=== PATIENT | male | born 1990 | race Caucasian/White ===

== ENCOUNTER 2018-11-09 13:30 | Emergency (ER) | payer OTHER, SELFPAY ==
[2018-11-09 13:43] VITALS: BP 140/87; PULSE 71; RESP 15; O2SAT 96; BMI 20.7
--- NOTE | 2018-11-09 16:16 | PC.NURSE ---
Leopoldo states he does not want to wait any longer. No acute distress. Encouraged to return if worse / concerns.
== END 2018-11-09 16:00 | disposition left against medical advice (07) ==
PROVIDERS: Emergency Provider Emergency Medicine
DX: Z53.21 Procedure and treatment not carried out due to patient leaving prior to being seen by health care provider (principal)
CPT/HCPCS: 93005

== ENCOUNTER 2018-11-09 19:08 | Emergency (ER) | payer OTHER, SELFPAY ==
[2018-11-09 19:15] VITALS: BP 148/94; PULSE 76; RESP 14; TEMP 36.7; O2SAT 98
[2018-11-09] MEDS: IBUPROFEN 400 MG TABLET 800 MG PO (19:21)
--- NOTE | 2018-11-09 21:19 | ED.EXTPRO ---
HPI - Extremity Problem <ALEX Manzo - Last Filed: 11/09/18 21:52> General Chief complaint: Extremity Problem,Nontraumatic Stated complaint: PAIN LEFT SHOULDER Time Seen by Provider: 11/09/18 21:05 Source: patient Mode of arrival: ambulatory Limitations: no limitations History of Present Illness HPI Narrative: The patient is a 28-year-old male current everyday smoker who presents with a chief complaint of left arm pain. he states he has a knot in his left upper back that has progressed to pain down his arm with some pins and needle sensation. He denies any fall or trauma pain denies any fevers nausea vomiting diarrhea, chest pain shortness of breath. He states he was exercising yesterday. He has not taken anything at home by himself. He states he took ibuprofen earlier today in the waiting room. He states that this has happened before and that applying ice this helped. Related Data Previous Rx's Medication Instructions Recorded cyclobenzaprine 10 mg PO TID PRN #20 tab 11/09/18 ketorolac 10 mg PO Q6H PRN 2 Days #8 tab 11/09/18 Allergies Allergy/AdvReac Type Severity Reaction Status Date / Time No Known Drug Allergies Allergy Verified 11/09/18 19:18 Review of Systems <ALEX Manzo - Last Filed: 11/09/18 21:52> Review of Systems GENERAL: Denies chills, fatigue, malaise, fever, sweats. HEENT: Denies sinus pain, ear pain, sore throat, difficulty swallowing, dizziness. RESPIRATORY: Denies dyspnea, cough, wheezing, hemoptysis, sputum. CARDIOVASCULAR: Denies chest pain, palpitations, orthopnea, edema, GASTROINTESTINAL: Denies nausea, vomiting, abdominal pain, diarrhea, constipation, melena. : Denies dysuria, frequency, incontinence, hematuria, urinary retention. MUSCULOSKELETAL: See HPI SKIN: Denies rash, skin lesions, or other NEUROLOGIC: Denies weakness, headache, numbness, change in speech, confusion, seizures, incoordination. PSYCHIATRIC: No concerning psychosocial issues. 12 point review of systems is negative except for those stated above PFSH <ALEX Manzo - Last Filed: 11/09/18 21:52> Social History Smoking Status: Current every day smoker Social History Smoking Status: Current every day smoker Exam <HUA Manzo - Last Filed: 11/09/18 21:52> Narrative Exam Narrative: GENERAL: This is a well-nourished, well-developed patient, in mild distress. HEAD: Atraumatic. Normocephalic. No temporal or scalp tenderness. EYES: Pupils equal round and reactive. Extraocular motions intact. No scleral icterus. No injection or drainage. ENT: Nose without bleeding, purulent drainage or septal hematoma. Throat without erythema, tonsillar hypertrophy or exudate. Uvula midline. Airway patent. NECK: Trachea midline. No JVD or lymphadenopathy. Supple, nontender, no meningeal signs. CARDIOVASCULAR: Regular rate and rhythm without murmurs, gallops, or rubs. RESPIRATORY: No increased respiratory effort. No accessory muscle use. EXTREMITIES: Pain to palpation generalized left shoulder. Full range of motion left shoulder, intact radial pulse left left hand. Full range of motion noted. sensation is intact, patient is able to identify touch left hand. The palpation left sternocleidomastoid. BACK: Nontender without deformity or crepitance. No flank tenderness. NEURO: AOx3. SKIN: No rash or erythema. No ecchymosis rash erythema noted left shoulder. Initial Vital Signs Initial Vital Signs: Vital Signs Temperature 98.1 F 11/09/18 19:15 Pulse Rate 76 11/09/18 19:15 Respiratory Rate 14 11/09/18 19:15 Blood Pressure 148/94 H 11/09/18 19:15 Pulse Oximetry 98 11/09/18 19:15 <Hiram Harvey MD - Last Filed: 11/10/18 02:06> Initial Vital Signs Initial Vital Signs: Vital Signs Temperature 98.1 F 11/09/18 19:15 Pulse Rate 76 11/09/18 19:15 Respiratory Rate 14 11/09/18 19:15 Blood Pressure 148/94 H 11/09/18 19:15 Pulse Oximetry 98 11/09/18 19:15 Course <HUA Manzo - Last Filed: 11/09/18 21:52> Orders Ordered: Discontinued Medications Cyclobenzaprine HCl (Flexeril) 10 mg PO NOW ONE Stop: 11/09/18 21:15 Last Admin: 11/09/18 21:22 Dose: 10 mg Ibuprofen (Advil) 800 mg PO NOW ONE Stop: 11/09/18 19:19 Last Admin: 11/09/18 19:21 Dose: 800 mg Vital Signs - 8 hr 11/09/18 19:15 11/09/18 21:33 Temperature 98.1 F 97.7 F Pulse Rate 76 70 Respiratory Rate 14 16 Blood Pressure 148/94 H 140/89 Pulse Oximetry 98 100 <Hiram Harvey MD - Last Filed: 11/10/18 02:06> Orders Ordered: Discontinued Medications Cyclobenzaprine HCl (Flexeril) 10 mg PO NOW ONE Stop: 11/09/18 21:15 Last Admin: 11/09/18 21:22 Dose: 10 mg Ibuprofen (Advil) 800 mg PO NOW ONE Stop: 11/09/18 19:19 Last Admin: 11/09/18 19:21 Dose: 800 mg Vital Signs - 8 hr 11/09/18 19:15 11/09/18 21:33 Temperature 98.1 F 97.7 F Pulse Rate 76 70 Respiratory Rate 14 16 Blood Pressure 148/94 H 140/89 Pulse Oximetry 98 100 MDM - Extremity (Nontraumatic) <MENDOZA Manzo-ALBIN - Last Filed: 11/09/18 21:52> MDM Narrative Medical decision making narrative: The patient is a 28-year-old male who presents with a chief complaint of left shoulder injury and pain. he stated improvement after ice and ibuprofen application. He declined x-rays he did not have any trauma. He is neurovascularly intact. Exam indicates muscle spasm. I did give her a prescription of Toradol with the distinct instruction to not combine with any ibuprofen Aleve or other NSAIDs. We did a trial of Flexeril in the emergency department, which the patient appreciated so I did urge him with a prescription of Flexeril as well. I encouraged follow-up with primary care provider and gave him contact information for the health water resource project manager. Discussed going back to emergency department for any acute concerns. Patient has no questions or concerns upon discharge. Discharge Plan Departure Patient Disposition: Home Clinical Impression: Acute shoulder pain Qualifiers: Laterality: left Qualified Code(s): M25.512 - Pain in left shoulder Discharge Date/Time: 11/09/18 21:34 Interventions: ED Discharge Assessment Last Done: 11/09/18 21:33 Instructions: How To Perform RICE (Rest, Ice, Compress, Elevate), DI for Shoulder Pain Activity Restrictions/Additional Instructions: I have given you a prescription for Toradol, which is a strong NSAID. Please do not combine this with ibuprofen, Aleve or other NSAIDs. Please take it with food. I have also given you a prescription for a muscle relaxer, this can be sedating. Do not take it and drive. You can contact a primary care provider by calling the health water resource project manager at [phone]. They can help you find a primary care provider. Please follow up with primary care provider. Please come back to emergency department for any acute concerns. Prescriptions: New cyclobenzaprine 10 mg tablet 10 mg PO TID PRN (Reason: muscle spasm) Qty: 20 RF: 0 ketorolac 10 mg tablet 10 mg PO Q6H PRN (Reason: pain) 2 Days Qty: 8 RF: 0 <Hiram Harvey MD - Last Filed: 11/10/18 02:06> [facility] Attending Abelardoature Attestation: I was present in the ER at the time this patient's care. I was available for consultation or to see the patient directly if required. I agree with the evaluation, assessment and treatment plan.
[2018-11-09] MEDS: CYCLOBENZAPRINE 10 MG TABLET PO (21:22)
--- NOTE | 2018-11-09 21:24 | PC.NURSE ---
Pt states he woke up this morning the pain and stiffness to left shoulder/neck area. Medicated with flexeril per order. Educated pt to expect soreness/stiffness for the next several days.
[2018-11-09 21:33] VITALS: BP 140/89; PULSE 70; RESP 16; TEMP 36.5; O2SAT 100
== END 2018-11-09 21:34 | disposition home or self-care (01) ==
PROVIDERS: Emergency Provider Nurse Practitioner Family
DX: M25.512 Pain in left shoulder (principal); M54.9 Dorsalgia, unspecified; R11.0 Nausea; R20.2 Paresthesia of skin; Z53.21 Procedure and treatment not carried out due to patient leaving prior to being seen by health care provider
CPT/HCPCS: 93005; 93010; 99281; 99282; 99283